=== PATIENT | male | born 1950 | race Hispanic/Latino ===

== ENCOUNTER 2020-06-10 05:59 | Day surgery (SDC) | payer OTHER ==
[2020-06-08 13:11] LABS: APPEARANCE,URINE CLEAR (CLEAR); BASOPHILS % (AUTO) 0.7 % (0.0-5.0); BILIRUBIN,URINE NEGATIVE (NEGATIVE); COLOR,URINE YELLOW (YELLOW); EOSINOPHILS % (AUTO) 3.3 % (0.0-8.0); GLUCOSE, URINE (UA) NEGATIVE (NEGATIVE); HEMATOCRIT 40.2 % (42-54); KETONES,URINE NEGATIVE (NEGATIVE); LEUKOCYTE ESTERASE ,URINE NEGATIVE (NEGATIVE); MEAN CORPUSCULAR HEMOGLOBIN 28.5 pg (27.0-33.0); MEAN CORPUSCULAR HGB CONC 33.3 g/dL (32.0-36.0); MEAN CORPUSCULAR VOLUME 85.4 fL (79-99); MONOCYTES % (AUTO) 7.6 % (3.0-13.0); NEUTROPHILS % (AUTO) 56.1 % (40.0-77.0); NITRATE,URINE NEGATIVE (NEGATIVE); OCCULT BLOOD,URINE NEGATIVE (NEGATIVE); PLATELET COUNT (AUTO) 232 K/uL (130-400); PROTEIN,URINE NEGATIVE (NEGATIVE); RED BLOOD CELL COUNT(AUTO) 4.71 MIL/uL (4.50-6.20); RED CELL DISTRIBUTION WIDTH 12.5 % (11.0-15.5); UROBILINOGEN,URINE 0.2 mg/dL (0.2-1.0); WHITE BLOOD COUNT (AUTO) 7.4 K/uL (4.8-10.8)
[2020-06-08 13:22] LABS: CREATININE 0.9 mg/dL (0.5-1.5); POTASSIUM 4.3 mmol/L (3.5-5.1)
[2020-06-08 13:23] LABS: INR 0.92 (0.85-1.15); PARTIAL THROMBOPLASTIN TIME 26.8 SEC (26.3-35.5)
[2020-06-09 09:14] VITALS: BP 140/67
[2020-06-10] VITALS (10 sets, daily range): BP systolic 106–132; BP diastolic 56–101
[~2020-06-10] VITALS: Ht 175.3 cm; Wt 81.1 kg
[~2020-06-10 05:59] MED LIST: AMLO-257 PO; ATEN25TA PO; ATOR-2 PO; CILO100T PO; CYAN100T45 PO; LOSA50TA64 PO; SODIUM CHLORIDE 0.9% 500ML 500 ML IV SCH; TAMS-1 PO; VITAMIN D PO
[2020-06-10] MEDS ORDERED: NITROGLYCERIN 2 MG/VIAL VIAL IV ONE (07:10)
[2020-06-10] MEDS ORDERED: FENTANYL CITRATE PF 50 MCG/1 ML 2ML VIAL ONE (07:10)
[2020-06-10] MEDS ORDERED: NICARDIPINE HCL 25 MG/10 ML ML IV ONE (07:10)
[2020-06-10] MEDS ORDERED: LIDOCAINE HCL 2% 20ML ONE (07:10)
[2020-06-10] MEDS ORDERED: HEPARIN SODIUM 1000UNIT/ML 10ML VIAL ONE (07:10)
[2020-06-10] MEDS ORDERED: MIDAZOLAM HCL 1 MG/ML 2ML VIAL ONE (07:10)
[2020-06-10] MEDS ORDERED: IODIXANOL 320 MG/ML 100 ML VIAL ONE (07:10)
[2020-06-10] MEDS ORDERED: CLOPIDOGREL BISULFATE 300 MG TAB ONE (08:17)
[2020-06-10] MEDS ORDERED: ASPIRIN 325MG EC TAB 325 MG TABLET.DR PO ONE (08:17)
== END 2020-06-10 13:45 | disposition home or self-care (01) ==
LOC: DAH 05:59
PROVIDERS: ATTEND Internal Medicine Cardiovascular Disease
DX: I70.213 Atherosclerosis of native arteries of extremities with intermittent claudication, bilateral legs (principal); I10 Essential (primary) hypertension; N40.0 Benign prostatic hyperplasia without lower urinary tract symptoms; J44.9 Chronic obstructive pulmonary disease, unspecified; F17.200 Nicotine dependence, unspecified, uncomplicated; Z79.82 Long term (current) use of aspirin; Z79.01 Long term (current) use of anticoagulants; Z79.899 Other long term (current) drug therapy; Z98.890 Other specified postprocedural states
CPT/HCPCS: 36415; 71045; 75630; 80048; 81003; 85025; 85347; 85610; 85730; 93005; A4215; A4221; A4222; A4223 ×2; A4606; A4663; C1727 ×2; C1760 ×2; C1769 ×3; C1876 ×2; C1894 ×4; C9765; J1644 ×2; J2250; J3010; J3490 ×2; J7040; Q9967; 37221; 75625; 75716; 99156; 99157

== ENCOUNTER 2022-10-30 05:45 | Day surgery (SDC) | payer OTHER ==
[2022-10-26 11:25] VITALS: BP 202/73
[2022-10-26 11:30] LABS: BASOPHILS % (AUTO) 0.9 % (0.0-5.0); EOSINOPHILS % (AUTO) 2.7 % (0.0-8.0); HEMATOCRIT 43.7 % (42-54); LYMPHOCYTES % (AUTO) 27.5 % (21.0-51.0); MONOCYTES % (AUTO) 6.1 % (3.0-13.0); NEUTROPHILS % (AUTO) 62.7 % (40.0-77.0); PLATELET COUNT (AUTO) 231 K/uL (130-400); RED BLOOD CELL COUNT(AUTO) 5.14 MIL/uL (4.50-6.20); RED CELL DISTRIBUTION WIDTH 13.2 % (11.0-15.5); WHITE BLOOD COUNT (AUTO) 7.7 K/uL (4.8-10.8)
[2022-10-26 11:48] LABS: CREATININE 0.9 mg/dL (0.5-1.5); INR 0.93 (0.85-1.15); PROTHROMBIN TIME 10.1 SEC (9.6-11.6)
[2022-10-26 11:50] LABS: PARTIAL THROMBOPLASTIN TIME 30.5 SEC (26.3-35.5)
[2022-10-26 12:11] LABS: B-TYPE NATRIURETIC PEPTIDE 17 pg/mL (0-100)
[2022-10-26 13:12] LABS: APPEARANCE,URINE CLEAR (CLEAR); BILIRUBIN,URINE NEGATIVE (NEGATIVE); COLOR,URINE LIGHT-YELLOW (YELLOW); GLUCOSE, URINE (UA) NEGATIVE (NEGATIVE); KETONES,URINE NEGATIVE (NEGATIVE); LEUKOCYTE ESTERASE ,URINE NEGATIVE Leu/uL (NEGATIVE); NITRATE,URINE NEGATIVE (NEGATIVE); OCCULT BLOOD,URINE NEGATIVE (NEGATIVE); PROTEIN,URINE NEGATIVE (NEGATIVE); UROBILINOGEN,URINE 0.2 mg/dL (0.2-1.0)
[~2022-10-30] VITALS: Ht 175.3 cm; Wt 75.2 kg
[2022-10-30] VITALS (10 sets, daily range): BP systolic 120–142; BP diastolic 53–67
[~2022-10-30 05:45] MED LIST changes: -CILO100T PO; +CILO100T3 PO; +CLOP75TA32 PO; -CYAN100T45 PO; -SODIUM CHLORIDE 0.9% 500ML 500 ML IV SCH; -VITAMIN D PO
[2022-10-30] MEDS ORDERED: 0.9%NACL 1000ML 1,000 ML IV ONE (06:16)
[2022-10-30] MEDS ORDERED: LIDOCAINE HCL 400MG/20ML VIAL ONE (07:17)
[2022-10-30] MEDS ORDERED: FENTANYL CITRATE PF 50 MCG/1 ML 2ML VIAL ONE (07:17)
[2022-10-30] MEDS ORDERED: NITROGLYCERIN 50MG VIAL ONE (07:18)
[2022-10-30] MEDS ORDERED: MIDAZOLAM HCL 1 MG/ML 2ML VIAL ONE (07:18)
[2022-10-30] MEDS ORDERED: NICARDIPINE 25MG INJ IV ONE (07:18)
[2022-10-30] MEDS ORDERED: HEPARIN 10,000 UNIT/10ML (1,000 UNIT/ML) VIAL ONE (07:18)
[2022-10-30] MEDS ORDERED: IODIXANOL 320 MG/ML 100 ML VIAL ONE (07:18)
[2022-10-30] MEDS ORDERED: 0.9%NACL 1000ML 1,000 ML IV SCH (10:00)
[2022-10-30] MEDS ORDERED: DEXTROSE 50%-WATER 50 ML DISP.SYRIN IV PRN (10:00)
[2022-10-30] MEDS ORDERED: GLUCAGON 1MG KIT 1 MG ML IM PRN (10:00)
== END 2022-10-30 13:25 | disposition home or self-care (01) ==
LOC: DAH 05:45
PROVIDERS: ATTEND Internal Medicine Cardiovascular Disease
DX: I70.213 Atherosclerosis of native arteries of extremities with intermittent claudication, bilateral legs (principal); I70.92 Chronic total occlusion of artery of the extremities; I10 Essential (primary) hypertension; E78.5 Hyperlipidemia, unspecified; J44.9 Chronic obstructive pulmonary disease, unspecified; N40.0 Benign prostatic hyperplasia without lower urinary tract symptoms; F17.200 Nicotine dependence, unspecified, uncomplicated; Z72.89 Other problems related to lifestyle; Z86.16 Personal history of COVID-19; Z79.01 Long term (current) use of anticoagulants; Z79.899 Other long term (current) drug therapy
CPT/HCPCS: 80048; 83880; 85025; 85610; 85730; 81003; 36415; 71045; 93005; 75716; 36246; C1769 ×3; C1894 ×2; C1887; J3010; J3490 ×3; J7030; J1644 ×2; J2250; Q9967; A4215; A4222; A4221; A4663; A4216; A6206; A4606; A4223 ×3; 96360; 96361; 99156; 99157

== ENCOUNTER 2022-11-27 05:45 | Day surgery (SDC) | payer OTHER ==
[2022-11-23 09:22] VITALS: BP 158/64
[2022-11-23 10:02] LABS: BASOPHILS % (AUTO) 0.5 % (0.0-5.0); EOSINOPHILS % (AUTO) 4.9 % (0.0-8.0); HEMATOCRIT 39.2 % (42-54); LYMPHOCYTES % (AUTO) 31.4 % (21.0-51.0); MEAN CORPUSCULAR HGB CONC 32.9 g/dL (32.0-36.0); MEAN CORPUSCULAR VOLUME 85.2 fL (79-99); MONOCYTES % (AUTO) 8.7 % (3.0-13.0); NEUTROPHILS % (AUTO) 54.2 % (40.0-77.0); PLATELET COUNT (AUTO) 204 K/uL (130-400); RED CELL DISTRIBUTION WIDTH 13.3 % (11.0-15.5); WHITE BLOOD COUNT (AUTO) 7.7 K/uL (4.8-10.8)
[2022-11-23 10:15] LABS: INR 0.93 (0.85-1.15); PROTHROMBIN TIME 10.2 SEC (9.6-11.6)
[2022-11-23 10:17] LABS: PARTIAL THROMBOPLASTIN TIME 29.4 SEC (26.3-35.5); POTASSIUM 3.7 mmol/L (3.5-5.1)
[2022-11-23 10:36] LABS: B-TYPE NATRIURETIC PEPTIDE 23 pg/mL (0-100)
[~2022-11-27] VITALS: Ht 175.3 cm; Wt 76.7 kg
[2022-11-27] VITALS (10 sets, daily range): BP systolic 107–150; BP diastolic 52–74
[~2022-11-27 05:45] MED LIST changes: +ALBU6.7H14 IH; +NITR0.4T50 SL
[2022-11-27] MEDS ORDERED: 0.9%NACL 1000ML 1,000 ML IV ONE (06:28)
[2022-11-27] MEDS ORDERED: LIDOCAINE HCL 400MG/20ML VIAL ONE (07:19)
[2022-11-27] MEDS ORDERED: IODIXANOL 320 MG/ML 100 ML VIAL ONE (07:19)
[2022-11-27] MEDS ORDERED: MIDAZOLAM HCL 1 MG/ML 2ML VIAL ONE ×3 (07:19→11:39)
[2022-11-27] MEDS ORDERED: FENTANYL CITRATE PF 50 MCG/1 ML 2ML VIAL ONE (07:19)
[2022-11-27] MEDS ORDERED: NICARDIPINE 25MG INJ IV ONE (07:20)
[2022-11-27] MEDS ORDERED: NITROGLYCERIN 50MG VIAL ONE (07:20)
[2022-11-27] MEDS ORDERED: HEPARIN 10,000 UNIT/10ML (1,000 UNIT/ML) VIAL ONE (07:20)
[2022-11-27] MEDS ORDERED: CLOPIDOGREL 300MG TAB ONE (10:29)
[2022-11-27] MEDS ORDERED: DEXTROSE 50%-WATER 50 ML DISP.SYRIN IV PRN (10:30)
[2022-11-27] MEDS ORDERED: 0.9%NACL 1000ML 1,000 ML IV SCH (10:30)
[2022-11-27] MEDS ORDERED: GLUCAGON 1MG KIT 1 MG ML IM PRN (10:30)
== END 2022-11-27 15:30 | disposition home or self-care (01) ==
LOC: DAH 05:45
PROVIDERS: ATTEND Internal Medicine Cardiovascular Disease
DX: I70.213 Atherosclerosis of native arteries of extremities with intermittent claudication, bilateral legs (principal); I10 Essential (primary) hypertension; J44.9 Chronic obstructive pulmonary disease, unspecified; E78.5 Hyperlipidemia, unspecified; N40.0 Benign prostatic hyperplasia without lower urinary tract symptoms; F17.200 Nicotine dependence, unspecified, uncomplicated; Z79.01 Long term (current) use of anticoagulants; Z79.899 Other long term (current) drug therapy; Z72.89 Other problems related to lifestyle; Z86.16 Personal history of COVID-19
CPT/HCPCS: 80048; 83880; 85025; 85610; 85730; 36415; 93005; 75716; C9764 ×2; C1887; C1725 ×3; C1769 ×6; C1894 ×5; C1760 ×2; C1753; C2623 ×2; J3010; J3490 ×3; J7030; J1644 ×3; J2250 ×3; Q9967; A4215; A4222; A4221; A4663; A4216; A4606; A4223 ×3; 96360; 96361; 99156; 99157

== ENCOUNTER → 2023-02-21 | Outpatient (CLI) | payer OTHER | END | disposition home or self-care (01) | LOC: SHCH 10:23 | PROVIDERS: ATTEND Internal Medicine Cardiovascular Disease | DX: I08.0 Rheumatic disorders of both mitral and aortic valves (principal); I11.9 Hypertensive heart disease without heart failure; I73.9 Peripheral vascular disease, unspecified; R55 Syncope and collapse; E11.9 Type 2 diabetes mellitus without complications; E78.5 Hyperlipidemia, unspecified | CPT/HCPCS: 93306 ==

== ENCOUNTER 2023-11-18 06:54 | Day surgery (SDC) | payer OTHER ==
[2023-11-14 10:40] LABS: BASOPHILS # (AUTO) 0.05 K/uL (0.00-0.20); BASOPHILS % (AUTO) 0.7 % (0.0-5.0); EOSINOPHILS # (AUTO) 0.28 K/uL (0.00-0.70); HEMATOCRIT 36.6 % (42-54); IMMATURE GRANULOCYTE ABSOLUTE 0.02 K/uL (0-1); LYMPHOCYTES # (AUTO) 1.7 K/uL (1.0-4.8); LYMPHOCYTES % (AUTO) 23.7 % (21.0-51.0); MEAN CORPUSCULAR HEMOGLOBIN 28.3 pg (27.0-33.0); MEAN CORPUSCULAR HGB CONC 32.5 g/dL (32.0-36.0); MEAN CORPUSCULAR VOLUME 86.9 fL (79-99); MONOCYTES # (AUTO) 0.6 K/uL (0.1-1.0); MONOCYTES % (AUTO) 8.2 % (3.0-13.0); NEUTROPHILS # (AUTO) 4.4 K/uL (1.8-7.7); NEUTROPHILS % (AUTO) 63.1 % (40.0-77.0); PLATELET COUNT (AUTO) 178 K/uL (130-400); RED BLOOD CELL COUNT(AUTO) 4.21 MIL/uL (4.50-6.20); RED CELL DISTRIBUTION WIDTH 13.1 % (11.0-15.5)
[2023-11-14 10:52] VITALS: BP 138/64; PULSE 60; RESP 19
[2023-11-14 11:07] LABS: INR <= 0.93 (0.85-1.15); PROTHROMBIN TIME 10.3 SEC (9.6-11.6)
[2023-11-14 11:08] LABS: B-TYPE NATRIURETIC PEPTIDE 20 pg/mL (0-100); PARTIAL THROMBOPLASTIN TIME 27.1 SEC (26.3-35.5)
[~2023-11-18] VITALS: Ht 175.3 cm; Wt 79.2 kg
[2023-11-18] VITALS (10 sets, daily range): BP systolic 103–122; BP diastolic 49–66; PULSE 52–66; RESP 15–18
[~2023-11-18 06:54] MED LIST changes: -ATOR-2 PO; +LOSA100T59 PO; -LOSA50TA64 PO; +ROSU40TA70 PO
[2023-11-18] MEDS: 0.9%NACL 1000ML 1,000 ML IV ONE (08:17)
[2023-11-18] MEDS ORDERED: HEPARIN 10,000 UNIT/10ML (1,000 UNIT/ML) VIAL ONE (09:50)
[2023-11-18] MEDS ORDERED: MIDAZOLAM HCL 1 MG/ML 2ML VIAL ONE (09:50)
[2023-11-18] MEDS ORDERED: FENTANYL CITRATE PF 50 MCG/1 ML 2ML VIAL ONE ×2 (09:50→10:49)
[2023-11-18] MEDS ORDERED: NICARDIPINE 25MG INJ IV ONE (09:50)
[2023-11-18] MEDS ORDERED: NITROGLYCERIN 50MG VIAL ONE (09:51)
[2023-11-18] MEDS ORDERED: LIDOCAINE HCL 400MG/20ML VIAL ONE (09:51)
[2023-11-18] MEDS ORDERED: IODIXANOL 320 MG/ML 100 ML VIAL ONE (09:52)
[2023-11-18] MEDS ORDERED: GLUCAGON 1MG KIT 1 MG ML IM PRN (12:00)
[2023-11-18] MEDS ORDERED: 0.9%NACL 1000ML 1,000 ML IV SCH (12:00)
[2023-11-18] MEDS ORDERED: DEXTROSE 50%-WATER 50 ML DISP.SYRIN IV PRN (12:00)
== END 2023-11-18 15:10 | disposition home or self-care (01) ==
LOC: DAH 06:54
PROVIDERS: ATTEND Internal Medicine Cardiovascular Disease
DX: I70.212 Atherosclerosis of native arteries of extremities with intermittent claudication, left leg (principal); I70.92 Chronic total occlusion of artery of the extremities; I10 Essential (primary) hypertension; E78.5 Hyperlipidemia, unspecified; J44.9 Chronic obstructive pulmonary disease, unspecified; R00.1 Bradycardia, unspecified; I35.0 Nonrheumatic aortic (valve) stenosis; Z79.01 Long term (current) use of anticoagulants; Z79.899 Other long term (current) drug therapy; Z86.16 Personal history of COVID-19
CPT/HCPCS: 80048; 83880; 85025; 85610; 85730; 36415; 71045; 93005; 75710; 85347; C9772; C1887 ×2; C1894 ×4; C1769 ×4; C1725 ×2; C2623; C9764; J3010 ×2; J3490 ×3; J7030; J1644 ×3; J2250; Q9967; A4215; A4222; A4221; A4663; A4216; A4606; A4223 ×3; 96360; 96361; 99156; 99157

== ENCOUNTER 2024-02-12 05:39 | Day surgery (SDC) | payer OTHER ==
[2024-02-10 09:42] LABS: BASOPHILS # (AUTO) 0.05 K/uL (0.00-0.20); BASOPHILS % (AUTO) 0.8 % (0.0-5.0); EOSINOPHILS # (AUTO) 0.29 K/uL (0.00-0.70); EOSINOPHILS % (AUTO) 4.5 % (0.0-8.0); HEMATOCRIT 38.8 % (42-54); IMMATURE GRANULOCYTE ABSOLUTE 0.02 K/uL (0-1); LYMPHOCYTES # (AUTO) 2.3 K/uL (1.0-4.8); LYMPHOCYTES % (AUTO) 35.4 % (21.0-51.0); MEAN CORPUSCULAR HEMOGLOBIN 28.7 pg (27.0-33.0); MEAN CORPUSCULAR HGB CONC 33.5 g/dL (32.0-36.0); MEAN CORPUSCULAR VOLUME 85.7 fL (79-99); MONOCYTES # (AUTO) 0.6 K/uL (0.1-1.0); MONOCYTES % (AUTO) 8.5 % (3.0-13.0); NEUTROPHILS # (AUTO) 3.3 K/uL (1.8-7.7); NEUTROPHILS % (AUTO) 50.5 % (40.0-77.0); PLATELET COUNT (AUTO) 228 K/uL (130-400); RED BLOOD CELL COUNT(AUTO) 4.53 MIL/uL (4.50-6.20); RED CELL DISTRIBUTION WIDTH 12.3 % (11.0-15.5); WHITE BLOOD COUNT (AUTO) 6.5 K/uL (4.8-10.8)
[2024-02-10 09:44] VITALS: BP 169/78; PULSE 51; RESP 18
[2024-02-10 09:51] LABS: INR 0.94 (0.85-1.15); PROTHROMBIN TIME 10.2 SEC (9.6-11.6)
[2024-02-10 09:55] LABS: POTASSIUM 3.9 mmol/L (3.5-5.1)
[2024-02-10 10:01] LABS: B-TYPE NATRIURETIC PEPTIDE 42 pg/mL (0-100)
[~2024-02-12] VITALS: Ht 175.3 cm; Wt 78.8 kg
[2024-02-12] VITALS (11 sets, daily range): BP systolic 130–165; BP diastolic 52–65; PULSE 50–68; RESP 16
[~2024-02-12 05:39] MED LIST changes: -AMLO-257 PO; -CILO100T3 PO; +SUCR1TAB2 PO
[2024-02-12] MEDS ORDERED: HEPARIN 10,000 UNIT/10ML (1,000 UNIT/ML) VIAL ONE (07:13)
[2024-02-12] MEDS ORDERED: CILO50TA2 PO (07:13)
[2024-02-12] MEDS ORDERED: IODIXANOL 320 MG/ML 100 ML VIAL ONE (07:13)
[2024-02-12] MEDS ORDERED: LIDOCAINE HCL 400MG/20ML VIAL ONE (07:13)
[2024-02-12] MEDS ORDERED: niCARDIpine 25MG INJ IV ONE (07:14)
[2024-02-12] MEDS ORDERED: NITROGLYCERIN 50MG VIAL ONE (07:14)
[2024-02-12] MEDS ORDERED: FENTANYL CITRATE PF 50 MCG/1 ML 2ML VIAL ONE (07:41)
[2024-02-12] MEDS ORDERED: MIDAZOLAM HCL 1 MG/ML 2ML VIAL ONE (07:42)
[2024-02-12] MEDS ORDERED: CLOPIDOGREL 300MG TAB ONE (09:25)
== END 2024-02-12 13:32 | disposition home or self-care (01) ==
LOC: DAH 05:39
PROVIDERS: ATTEND Internal Medicine Cardiovascular Disease
DX: I70.212 Atherosclerosis of native arteries of extremities with intermittent claudication, left leg (principal); I70.92 Chronic total occlusion of artery of the extremities; I10 Essential (primary) hypertension; E78.5 Hyperlipidemia, unspecified; J44.9 Chronic obstructive pulmonary disease, unspecified; I35.0 Nonrheumatic aortic (valve) stenosis; U07.1 COVID-19; Z79.01 Long term (current) use of anticoagulants; Z79.899 Other long term (current) drug therapy
CPT/HCPCS: 80048; 83880; 85025; 85610; 85730; 87426; 36415 ×2; 71045; 93005; 37228; 85347; 75710; C1887 ×2; C1894 ×3; C1769 ×4; C2623; J3010; J3490 ×3; J1644 ×2; J2250; Q9967; A4215; A4222; A4221; A4663; A4216; A4606; A4223 ×3; 99156; 99157